=== PATIENT | female | born 1945 | race Caucasian/White ===

== ENCOUNTER 2017-07-09 10:27 | Outpatient (CLI) | payer OTHER ==
[~2017-07-09] VITALS: Ht 162.6 cm; Wt 90.7 kg
[~2017-07-09 10:27] MED LIST: AMLO5CAP2 PO; HYDR-3713 PO; HYDR12.55 PO; OMEP40CA2 PO; SERT-138 PO; SIMV20TA2 PO
[2017-07-09] MEDS ORDERED: NS 1,000 ML IV ONE (10:45)
[2017-07-09] MEDS ORDERED: LIDOCAINE 2% INJ 100 MG/5 ML SDV (FOR ANES.) As Ordered ONE (11:36)
[2017-07-09] MEDS ORDERED: PROPOFOL 200 MG/20 ML VIAL As Ordered ONE ×2 (11:36→11:59)
--- NOTE | 2017-07-09 11:49 | ROOR ---
Patient Name: Mary Ann Fuller Procedure Date: 07/09/2017 11:36 AM Date of : 1945 Age: 72 Room: [facility] Gender: Female Note Status: Finalized Procedure: Upper GI endoscopy Indications: Heartburn Providers: Chris Wagoner MD Referring MD: Sushil Vernon MD Requesting Provider: Medicines: Monitored Anesthesia Care Complications: No immediate complications. Procedure: Pre-Anesthesia Assessment: - The heart rate, respiratory rate, oxygen saturations, blood pressure, adequacy of pulmonary ventilation, and response to care were monitored throughout the procedure. The Endoscope was introduced through the mouth, and advanced to the second part of duodenum. The upper GI endoscopy was accomplished without difficulty. The patient tolerated the procedure well. Findings: The Z-line was irregular and was found 40 cm from the incisors. A small hiatal hernia was present. No other significant abnormalities were identified in a careful examination of the stomach. The exam of the duodenum was otherwise normal. Impression: - Z-line irregular, 40 cm from the incisors. - Small hiatal hernia. - No specimens collected. - The examination was otherwise normal. Recommendation: - Patient has a contact number available for emergencies. The signs and symptoms of potential delayed complications were discussed with the patient. Return to normal activities tomorrow. Written discharge instructions were provided to the patient. - High fiber diet. - Discharge patient to home. - Continue present medications. - Return to referring physician. - The findings and recommendations were discussed with the patient's family. Chris Wagoner MD Chris Wagoner MD 07/09/2017 11:48:56 AM This report has been signed electronically. Number of Addenda: 0 Note Initiated On: 07/09/2017 11:36 AM Estimated Blood Loss: Estimated blood loss: none.
--- NOTE | 2017-07-09 12:01 | ROOR ---
Patient Name: Mary Ann Fuller Procedure Date: 07/09/2017 11:37 AM Date of : 1945 Age: 72 Room: [facility] Gender: Female Note Status: Finalized Procedure: Total Colonoscopy to Cecum Indications: Screening for colorectal malignant neoplasm, Last colonoscopy: 2005 Providers: Chris Wagoner MD Referring MD: Sushil Vernon MD Requesting Provider: Medicines: Monitored Anesthesia Care Complications: No immediate complications. Procedure: Pre-Anesthesia Assessment: - The heart rate, respiratory rate, oxygen saturations, blood pressure, adequacy of pulmonary ventilation, and response to care were monitored throughout the procedure. The Colonoscope was introduced through the anus and advanced to the cecum, identified by appendiceal orifice and ileocecal valve. The colonoscopy was performed without difficulty. The patient tolerated the procedure well. The quality of the bowel preparation was excellent. Findings: The perianal and digital rectal examinations were normal. Non-bleeding internal hemorrhoids were found during retroflexion. The hemorrhoids were small and Grade I (internal hemorrhoids that do not prolapse). Multiple small and large-mouthed diverticula were found in the recto-sigmoid colon, sigmoid colon and descending colon. The exam was otherwise without abnormality on direct and retroflexion views. Impression: - Non-bleeding internal hemorrhoids. - Diverticulosis in the recto-sigmoid colon, in the sigmoid colon and in the descending colon. - The examination was otherwise normal on direct and retroflexion views. - No specimens collected. - The exam was otherwise normal to the cecum. Recommendation: - Patient has a contact number available for emergencies. The signs and symptoms of potential delayed complications were discussed with the patient. Return to normal activities tomorrow. Written discharge instructions were provided to the patient. - High fiber diet. - Discharge patient to home. - Continue present medications. - Repeat colonoscopy for symptoms only. - Return to referring physician. - The findings and recommendations were discussed with the patient's family. Chris Wagoner MD Chris Wagoner MD 07/09/2017 12:01:09 PM This report has been signed electronically. Number of Addenda: 0 Note Initiated On: 07/09/2017 11:37 AM Estimated Blood Loss: Estimated blood loss: none.
[2017-07-09 12:20] VITALS: BP 113/63
== END 2017-07-09 12:28 | disposition home or self-care (01) ==
LOC: M OPP 10:27
PROVIDERS: ATTEND Internal Medicine Gastroenterology
DX: Z12.11 Encounter for screening for malignant neoplasm of colon (principal); K64.0 First degree hemorrhoids; K57.30 Diverticulosis of large intestine without perforation or abscess without bleeding; R12 Heartburn; K44.9 Diaphragmatic hernia without obstruction or gangrene; K22.8 Other specified diseases of esophagus; I10 Essential (primary) hypertension; E78.00 Pure hypercholesterolemia, unspecified; Z79.899 Other long term (current) drug therapy
CPT/HCPCS: 43235; G0121

== ENCOUNTER → 2017-07-30 | Outpatient (CLI) | payer OTHER ==
--- NOTE | 2017-07-30 12:26 | REP ---
MRI LUMBAR SPINE WITHOUT CONTRAST: 07/30/2017. COMPARISON: Bone windows from CT abdomen pelvis 08/14/2016. CLINICAL HISTORY: Lumbar spondylosis. TECHNIQUE: Sagittal T1, T2 and STIR images with axial T1 and T2 sequences provided. There is loss of the normal lordosis as on the previous CT. There are discogenic endplate changes and spondylosis, severe at L2-3 through L4-5. There is loss of disc water signal and height posteriorly at L5-S1 while L1-2 and T12-L1 disc levels are normal. No compression deformity or destructive lesions. The conus terminates at the L1-2 level. At T11-12 and L1-2. There is no disc bulge herniation and no spinal or foraminal stenosis. At L2-3 posterior osteophytic ridging associated disc bulge, ligamentum flavum and facet hypertrophy. Cross-sectional area of the canal was adequate. Foramina show some loss of perineural fat on the left compared to right, but no nerve root compression of the L2 nerves. At L3-4, there is broad-based disc bulge, ligamentum flavum and facet hypertrophy. Bulge extends into the left foramen. The AP canal diameter is narrowed due to the bulge, ligamentum and facet hypertrophy with AP canal diameter of 8 mm. There is loss of perineural fat due to the disc bulge and facet hypertrophy on the left without definite nerve root compression of the left L3 root. The right L3 root also shows some loss of perineural fat due to combined factors of but no compression. At L4-L5, there is posterior osteophytic ridging with small disc bulge and ligamentum flavum hypertrophy but no central canal stenosis. The foramina are adequate. At L5-S1, The broad-based disc bulge without central canal stenosis. The bulge, neither abuts or displaces the S1 nerve roots in the central canal. The foramina show adequate perineural fat. IMPRESSION: 1. Broad-based disc bulges at L2-3 and L3-4 extending into the left foramen at L3-4. There is central canal stenosis greatest at L3-4 foramen borderline at several levels as described. 2. No compression deformity. Ligamentum and facet hypertrophy at multiple levels. Other levels without significant findings except for facet arthropathy and ligamentum flavum hypertrophy at the levels described above. Signed by Bib Conde MD 07/30/2017 03:51 P
== END ==
LOC: M RAD 09:41
PROVIDERS: ATTEND Orthopaedic Surgery
DX: M54.5 Low back pain (principal)

== ENCOUNTER → 2017-08-21 | Outpatient (CLI) | payer OTHER ==
--- NOTE | 2017-08-21 15:42 | REP ---
MRI pelvis without contrast: History: Left hip and left leg pain. Trochanteric bursitis. Comparison CT study abdomen and pelvis August 14, 2016. Technique: Axial, coronal and sagittal T1 and T2-weighted scans were obtained with and without fat saturation. MRI findings: An area of magnetic field susceptibility artifact is seen emanating from the right hip replacement components. There is no evidence of joint effusion on the left. There is a small peritrochanteric bursal fluid collection on the left hip just lateral to the greater trochanter. No other periarticular fluid collection is seen. Cortical and medullary bone signal intensity are normal on the left. There is extensive sigmoid colon and distal descending colon diverticulosis. No CT evidence of diverticulitis is seen. There is a diffuse edema pattern on T2-weighted scans in the perirectal fat. There is a question of rectal wall thickening and mass effect. There is no evidence of adenopathy or extraluminal mass effect. Some postoperative changes are seen in the left lower quadrant anterior abdominal wall. Study is otherwise unremarkable. Impression: 1. Small greater trochanteric bursal fluid collection on the left. 2. Status post right hip arthroplasty. 3. Left colonic diverticulosis. 4. A diffuse pattern of perirectal fat edema and some rectal wall thickening, question rectal mass effect. Rectal neoplasm cannot be excluded. Endoscopic correlation suggested. Signed by Edgar Fink MD 08/21/2017 05:16 P
== END ==
LOC: M RAD 12:47
PROVIDERS: ATTEND Orthopaedic Surgery
DX: M70.62 Trochanteric bursitis, left hip (principal); M47.896 Other spondylosis, lumbar region; K57.30 Diverticulosis of large intestine without perforation or abscess without bleeding; Z96.641 Presence of right artificial hip joint

== ENCOUNTER → 2017-08-21 | Outpatient (CLI) | payer OTHER ==
[2017-08-21 15:21] LABS: INR 0.94
== END ==
LOC: M LAB 14:13
PROVIDERS: ATTEND Physical Medicine & Rehabilitation
DX: M47.896 Other spondylosis, lumbar region (principal)

== ENCOUNTER 2017-08-26 10:43 | Emergency (ER) | payer OTHER ==
[~2017-08-26] VITALS: Ht 162.6 cm; Wt 90.9 kg
[2017-08-26 10:43] VITALS: BP 139/69
--- NOTE | 2017-08-27 11:00 | REP ---
REASON: Pain after trauma. There is asymmetric intra-digital joint space narrowing with subtle marginal osteophyte formation. There is no periarticular osteopenia and there are no marginal erosions. There is no evidence of an acute fracture or dislocation. There are chronic changes seen involving the wrist. IMPRESSION: Chronic changes. Signed by Parker Bang DO 08/27/2017 12:13 P
== END 2017-08-26 11:56 | disposition home or self-care (01) ==
LOC: M ED 10:43
DX: S60.221A Contusion of right hand, initial encounter (principal); W55.89XA Other contact with other mammals, initial encounter; Y92.834 Zoological garden (Zoo) as the place of occurrence of the external cause; Y93.9 Activity, unspecified; Y99.9 Unspecified external cause status; Z79.899 Other long term (current) drug therapy

== ENCOUNTER → 2018-06-22 | Outpatient (CLI) | payer OTHER | LOC: M WUC 09:45 | DX: M22.2X1 Patellofemoral disorders, right knee (principal) | CPT/HCPCS: 73564 ==

== ENCOUNTER → 2018-08-16 | Outpatient (REF) | payer OTHER ==
[2018-08-16 11:59] LABS: BASO # 0.1 10^3/uL (0.0-0.2); BASO % 0.9 % (0.0-1.0); EOS # 0.2 10^3/uL (0.0-0.50); EOS % 3.6 % (0.0-3.0); HEMATOCRIT 41.4 % (36.0-47.0); HEMOGLOBIN 13.3 g/dl (12.0-15.5); IMMATURE GRANULOCYTE % 0.4 % (0-3.0); LYMPH # 1.2 10^3/uL (1.5-4.5); LYMPH % 21.9 % (24.0-44.0); MEAN CORPUSCULAR HEMOGLOBIN 27.9 pg (27.0-33.0); MEAN CORPUSCULAR HGB CONC 32.1 g/dl (32.0-36.5); MEAN CORPUSCULAR VOLUME 86.8 fl (80.0-96.0); MONO # 0.5 10^3/uL (0.0-0.8); MONO % 9.7 % (0.0-5.0); NEUTROPHILS # 3.6 10^3/uL (1.8-7.7); NEUTROPHILS % 63.5 % (36.0-66.0); PLATELET COUNT, AUTOMATED 378 10^3/uL (150-450); RED BLOOD COUNT 4.77 10^6/uL (4.00-5.40); RED CELL DISTRIBUTION WIDTH 14.7 % (11.5-14.5); WHITE BLOOD COUNT 5.6 10^3/uL (4.0-10.0)
[2018-08-16 12:45] LABS: ERYTHROCYTE SEDIMENTATION RATE 10 mm/hr (0-30)
[2018-08-16 13:28] LABS: URIC ACID 4.5 MG/DL (2.6-6.0)
[2018-08-16 13:28] LABS: RHEUMATOID FACTOR QUANT < 10.0 IU/ML (<15.0)
[2018-08-17 14:23] LABS: ANTINUCLEAR ANTIBODIES DIRECT Negative (Negative); Lyme Disease IgG/IgM Antibodie <0.91 ISR (0.00-0.90); Lyme Disease IgM Ab Quantitati <0.80 index (0.00-0.79)
== END ==
LOC: M LABDRAW1 08:51
DX: M25.561 Pain in right knee (principal)
CPT/HCPCS: 84550

== ENCOUNTER → 2018-08-19 | Outpatient (REF) | payer OTHER | LOC: M LAB REF 16:56 | DX: N39.0 Urinary tract infection, site not specified (principal) | CPT/HCPCS: 87086 ==

== ENCOUNTER → 2020-07-15 | Outpatient (REF) | payer MEDICARE, OTHER ==
[~2020-07-15] MED LIST changes: -AMLO5CAP2 PO; +AMLO5CAP44 PO; -OMEP40CA2 PO; +OMEP40CA97 PO; -SIMV20TA2 PO; +SIMV20TA22 PO
== END ==
LOC: M LAB REF 12:49
PROVIDERS: ATTEND Dermatology
DX: C44.319 Basal cell carcinoma of skin of other parts of face (principal)
CPT/HCPCS: 11102; 88305; G0463

== ENCOUNTER → 2021-03-18 | Outpatient (REF) | payer MEDICARE ==
[2021-03-19 17:09] LABS: Lyme Disease IgG/IgM Antibodie <0.91 ISR (0.00-0.90); Lyme Disease IgM Ab Quantitati <0.80 index (0.00-0.79)
== END ==
LOC: M LAB REF 11:52
PROVIDERS: ATTEND Family Medicine
DX: M25.50 Pain in unspecified joint (principal)

== ENCOUNTER → 2021-06-29 | Outpatient (CLI) | payer MEDICARE ==
[~2021-06-29] MED LIST changes: +OMEP40CA4 PO; -OMEP40CA97 PO
--- NOTE | 2021-06-30 17:43 | SLEEPCENT ---
DATE: 06/29/2021 ORDERED BY: Elvia Smallwood Nocturnal polysomnography was performed for evaluation of sleep physiology in this patient with a history of excessive somnolence and nonrestorative sleep who has significant comorbidities of hypertension and coronary artery disease as well as acid reflux disease. There was 7 hours and 22 minutes of data reviewed. There was 305.5 minutes of sleep identified. Sleep latency was mildly prolonged at 56.5 minutes. REM latency was more so prolonged at 282.5 minutes. Sleep architecture was fragmented with only one REM cycle late in the study. Overall sleep efficiency was 71%. The electrocardiogram shows a sinus rhythm with an average heart rate of 68 beats per minute. EEG showed reasonably normal waveforms for wake and sleep. A curious preponderance of stage III sleep was noted at the expense of REM time. There were 53 respiratory events identified of 10 seconds in duration or greater for an apnea-hypopnea index of 10.4. The events were primarily obstructive, not exclusive to sleep stage nor body position. Arousals from respiratory events occurred only 1.2 times per hour. Some limb activity was noted on the EMG leads. There were two trains of 30 events. Limb movement arousal index 4.3. Oxygen saturations did fall into the 80s with respiratory events, and some snoring was noted particularly late in the study. IMPRESSION: Obstructive sleep apnea syndrome (G47.33). Apnea-hypopnea index 10.4. RECOMMENDATION: The patient should be encouraged to return to the sleep disorder center for pressure therapy. In the interim, alcohol and sedative avoidance should be practiced and caution exercised during the operation of motor vehicles.
== END ==
LOC: M SLEEP 20:00
PROVIDERS: ATTEND Nurse Practitioner Adult Health
DX: G47.33 Obstructive sleep apnea (adult) (pediatric) (principal)

== ENCOUNTER → 2021-07-30 | Outpatient (CLI) | payer MEDICARE ==
--- NOTE | 2021-08-01 16:26 | SLEEPCENT ---
DATE: 07/30/2021 PROCEDURE: Nocturnal polysomnography CPAP titration. ORDERED BY: Elvia Smallwood RN. Nocturnal polysomnography was performed for the titration of pressure therapy in this patient with obstructive sleep apnea syndrome, apnea-hypopnea index 10.4. For testing, a ResMed AirFit N20 nasal mask of medium size was used. 4 cm of water pressure were applied to the circuit, and the lights were extinguished. 7 hours and 35 minutes of data were reviewed. There were 296.5 minutes of sleep identified. Sleep latency was mildly prolonged at 51.5 minutes. REM latency also mildly prolonged at 188 minutes. Sleep architecture improved with optimal pressure therapy. There was only 1 REM cycle. Overall sleep efficiency 66.1%. The electrocardiogram showed a sinus rhythm with an average heart rate of 70 beats per minute. EEG showed normal waveforms for wake and sleep. Respiratory events were fully palliated with CPAP at a pressure of +6. With some activity in the limb leads on this occasion, limb movement arousal index 7.3. IMPRESSION: Obstructive sleep apnea syndrome (G47.33). RECOMMENDATION: Nightly use of pressure therapy, 6 cm of water. cc: ALTAF GUALLPA MD
== END ==
LOC: M SLEEP 20:00
PROVIDERS: ATTEND Nurse Practitioner Adult Health
DX: G47.33 Obstructive sleep apnea (adult) (pediatric) (principal)

== ENCOUNTER → 2021-09-01 | Outpatient (REF) | payer MEDICARE | LOC: M LAB REF 16:17 | PROVIDERS: ATTEND Family Medicine | DX: R35.0 Frequency of micturition (principal) ==

== ENCOUNTER → 2022-02-28 | Outpatient (REF) | payer MEDICARE | LOC: M LAB REF 16:18 | PROVIDERS: ATTEND Family Medicine | DX: R35.0 Frequency of micturition (principal) ==

== ENCOUNTER → 2022-03-29 | Outpatient (REF) | payer MEDICARE | LOC: M SFHCDERM 17:53 | PROVIDERS: ATTEND Physician Assistant | DX: C44.629 Squamous cell carcinoma of skin of left upper limb, including shoulder (principal) ==

== ENCOUNTER → 2022-05-04 | Outpatient (REF) | payer MEDICARE | LOC: M LAB REF 08:10 | PROVIDERS: ATTEND Surgery | DX: C44.629 Squamous cell carcinoma of skin of left upper limb, including shoulder (principal) ==

== ENCOUNTER → 2022-05-18 | Outpatient (CLI) | payer MEDICARE ==
[2022-05-18 11:23] LABS: ALBUMIN 3.8 GM/DL (3.2-5.2); ALT/SGPT 34 U/L (12-78); BILIRUBIN,TOTAL 0.6 MG/DL (0.2-1.0); BLOOD UREA NITROGEN 15 MG/DL (7-18); CALCIUM LEVEL 9.4 MG/DL (8.8-10.2); CARBON DIOXIDE LEVEL 32 MEQ/L (21-32); CHLORIDE LEVEL 105 MEQ/L (98-107); CHOLESTEROL LEVEL 200 MG/DL (<200); CHOLESTEROL RISK RATIO 2.702 (<5); GLOMERULAR FILTRATION RATE > 60.0 (>39); GLUCOSE, FASTING 89 MG/DL (70-100); HDL CHOLESTEROL 74 MG/DL (>40); LDL CHOLESTEROL 116 MG/DL (<100); NON-HDL-C 126 MG/DL; POTASSIUM SERUM 4.9 MEQ/L (3.5-5.1); SODIUM LEVEL 140 MEQ/L (136-145); TOTAL PROTEIN 6.6 GM/DL (6.4-8.2); TRIGLYCERIDES LEVEL 51 MG/DL (<150)
== END ==
LOC: M LAB 09:52
PROVIDERS: ATTEND Nurse Practitioner Family
DX: E78.5 Hyperlipidemia, unspecified (principal)

== ENCOUNTER → 2022-08-17 | Outpatient (REF) | payer MEDICARE | LOC: M LAB REF 11:57 | PROVIDERS: ATTEND Family Medicine | DX: R74.8 Abnormal levels of other serum enzymes (principal) ==

== ENCOUNTER → 2022-09-08 | Outpatient (CLI) | payer MEDICARE | LOC: M WHC 08:47 | PROVIDERS: ATTEND Family Medicine | DX: K76.89 Other specified diseases of liver (principal); R14.0 Abdominal distension (gaseous) ==

== ENCOUNTER → 2023-02-21 | Outpatient (REF) | payer MEDICARE | LOC: M LAB REF 12:59 | PROVIDERS: ATTEND Family Medicine | DX: R74.8 Abnormal levels of other serum enzymes (principal) ==

== ENCOUNTER → 2023-09-05 | Outpatient (REF) | payer MEDICARE | LOC: M LAB REF 12:41 | PROVIDERS: ATTEND Family Medicine | DX: R74.8 Abnormal levels of other serum enzymes (principal) ==

== ENCOUNTER → 2024-03-03 | Outpatient (REF) | payer MEDICARE | LOC: M SFHCDERM 07:48 | PROVIDERS: ATTEND Physician Assistant | DX: D04.61 Carcinoma in situ of skin of right upper limb, including shoulder (principal) ==

== ENCOUNTER → 2024-03-04 | Outpatient (REF) | payer MEDICARE | LOC: M LAB REF 13:08 | PROVIDERS: ATTEND Family Medicine | DX: R74.8 Abnormal levels of other serum enzymes (principal) ==

== ENCOUNTER → 2024-05-16 | Outpatient (CLI) | payer MEDICARE | LOC: M PLARAD 10:27 | PROVIDERS: ATTEND Family Medicine | DX: R51.9 Headache, unspecified (principal) ==

== ENCOUNTER → 2024-06-27 | Outpatient (REF) | payer MEDICARE ==
[2024-06-27 13:54] LABS: C REACTIVE PROTEIN QUANTITATIV < 0.40 MG/DL (<1.0)
[2024-06-27 13:58] LABS: RHEUMATOID FACTOR QUANT 7.8 IU/ML (<14)
[2024-07-01 16:43] LABS: ANA PATTERN Nuclear, Homogeneous (NEGATIVE); ANA SCREEN, IFA POSITIVE (NEGATIVE)
[2024-07-02 19:17] LABS: LYME TOTAL ANTIBODY CIA <= 0.90 Index (<=0.90)
== END ==
LOC: M LAB REF 12:31
PROVIDERS: ATTEND Family Medicine
DX: M25.562 Pain in left knee (principal)

== ENCOUNTER → 2025-09-08 | Outpatient (REF) | payer MEDICARE | LOC: M SFHCDERM 16:37 | PROVIDERS: ATTEND Physician Assistant | DX: C44.619 Basal cell carcinoma of skin of left upper limb, including shoulder (principal) ==